=== PATIENT | male | born 1955 | race Caucasian/White ===

== ENCOUNTER 2017-02-08 15:36 | Emergency (ER) | payer BC, OTHER ==
[2017-02-08] MEDS ORDERED: Albuterol/Ipratropium NEB.SOL* Albuterol 2.5 MG/Ipratropium 0.5 MG 3 ML INH ONE (18:35)
--- NOTE | 2017-02-08 18:35 | UC ---
Throat Pain/Nasal [place] HPI - HPI Summary HPI Summary: complaint of cough and nasal congestion that started approx7 days ago thought it was just allergies productive cough coughing spasms and wheezing at night wheezing worse today can't stop coughing fever of 100.5 today denies N/V/D, sore throat taking claritin and nasal rinsing without relief - History of Current Complaint Chief Complaint: UCRespiratory Stated Complaint: COUGH Time Seen by Provider: 02/08/17 18:27 Hx Obtained From: Patient - Allergies/Home Medications Allergies/Adverse Reactions: Allergies Allergy/AdvReac Type Severity Reaction Status Date / Time No Known Allergies Allergy Verified 02/08/17 16:22 Home Medications: Home Medications Aspirin EC Low Dose* [Ecotrin EC Low Dose 81 MG*] 81 mg PO DAILY 02/08/17 [ History Confirmed 02/08/17] Fluticasone NASAL SPRAY 50MCG* [Flonase NASAL SPRAY 50MCG*] 2 spray BOTH NARES DAILY 02/08/17 [History Confirmed 02/08/17] Loratadine [Claritin Reditabs 10 MG] 10 mg PO DAILY 02/08/17 [History Confirmed 02/08/17] Multivitamins/Minerals TAB* [Thera M Plus TAB*] 1 tab PO DAILY 02/08/17 [ History Confirmed 02/08/17] Omeprazole CAP* [Prilosec CAP* 20 MG] 20 mg PO DAILY 02/08/17 [History Confirmed 02/08/17] PMH/Surg Hx/FS Hx/Imm Hx Previously Healthy: Yes Cardiovascular History Of: Reports: Hypertension Respiratory History Of: Reports: Asthma - Surgical History Surgical History: Yes Surgery Procedure, Year, and Place: nasal surgery 10/2016, jaw surgery - Family History Known Family History: Negative: Cardiac Disease, Hypertension, Diabetes - Social History Occupation: Employed Full-time Lives: With Family Alcohol Use: Occasionally Substance Use Type: None Smoking Status (MU): Never Smoked Tobacco Review of Systems Constitutional: Fever Skin: Negative Eyes: Negative ENT: Nasal Discharge Respiratory: Cough Cardiovascular: Negative Gastrointestinal: Negative Genitourinary: Negative Motor: Negative Neurovascular: Negative Musculoskeletal: Negative Neurological: Headache Psychological: Negative All Other Systems Reviewed And Are Negative: Yes Physical Exam Triage Information Reviewed: Yes Appearance: No Pain Distress, Well-Nourished Vital Signs: Initial Vital Signs Temp 100.0 F 02/08/17 16:26 Pulse 86 02/08/17 16:26 Resp 16 02/08/17 16:26 BP 127/71 02/08/17 16:26 Pulse Ox 97 02/08/17 16:26 Vital Signs Reviewed: Yes Eyes: Positive: Conjunctiva Clear ENT: Positive: Pharyngeal erythema, Nasal congestion, Nasal drainage, TMs normal Neck: Positive: No Lymphadenopathy Respiratory: Positive: No respiratory distress, No accessory muscle use, Rhonchi - RLL, Wheezing - throughout Cardiovascular: Positive: RRR, No Murmur, Pulses Normal Abdomen Description: Positive: Nontender, Soft Bowel Sounds: Positive: Present Musculoskeletal: Positive: No Edema Neurological: Positive: Alert Psychological Exam: Normal Skin Exam: Normal Re-Evaluation - Re-Evaluation First Eval Change: Improved - less wheezing throughout Throat Pain/Nasal Course/Dx - Differential Dx/Diagnosis Differential Diagnosis/HQI/PQRI: Influenza, Pharyngitis, Sinusitis, URI, Other - bronchitis Provider Diagnoses: asthma exacerbation Discharge - Discharge Plan Condition: Stable Disposition: HOME Prescriptions: Albuterol HFA INHALER* [Ventolin HFA Inhaler*] 2 puff INH Q4H PRN #1 mdi PRN Reason: Wheezing Clarithromycin TAB* [Biaxin 500 MG TAB*] 500 mg PO BID #20 tab Guaifenesin-Codeine [Cheratussin AC] 10 ml PO TID PRN #120 syp MDD 30 ml PRN Reason: Cough Spacer/Aerosol-Holding Chamber [Aerochamber Mv] 1 mis XX Q4HR #1 mis predniSONE TAB* [Deltasone TAB*] 50 mg PO DAILY #5 tab Patient Education Materials: Acute Bronchitis (ED), Bronchospasm (ED), Asthma ( ED) Referrals: Gonsalo Escobar DO [Primary Care Provider] - Additional Instructions: Please take antibiotic as directed Use your albuterol inhaler every 4-6 hours when needed for wheezing, shortness of breath or uncontrolled coughing. Increase fluids and rest Take acetaminophen or ibuprofen for fever or pain Please review your discharge instructions. If your symptoms do not improve please call your primary care provider or return to urgent care.
[2017-02-08] MEDS ORDERED: Benzonatate CAP* 100 MG PO ONE (18:47)
[2017-02-08] MEDS ORDERED: Clarithromycin TAB* 500 MG PO ONE (18:48)
[2017-02-08 18:49] VITALS: BP 122/74
[2017-02-08] MEDS ORDERED: Albuterol HFA INHALER* 8 gm MDI INH ONE (18:53)
== END 2017-02-08 19:11 | disposition home or self-care (01) ==
LOC: UCCORT 15:36
DX: J45.901 Unspecified asthma with (acute) exacerbation (principal); I10 Essential (primary) hypertension
CPT/HCPCS: 99213; A9270-GY; G0463